=== PATIENT | female | born 1930 | race Caucasian/White ===

== ENCOUNTER → 2020-05-05 | Outpatient (CLI) | payer OTHER ==
[~2020-05-05] MED LIST: ACIPHEX 20 MG T20 MG PO; APAP500; CHERATUSSIN DA480 ML PO; CIPROFLOXACIN500 M1 PO; COUMADIN 4 MG TA4 M1 PO; DARVOCET; HYDROCHLOROTHIA25 M1 PO; IBUPROFEN 600600 M1 PO; K-DUR10 ME1 PO; METAXALONE800 MG PO; TRAMADOL 50 MG50 MG PO
--- NOTE | ~2020-05-05 | EKG ---
[facility] [place] [address] ELECTROCARDIOGRAM REPORT Name: LAURENCE PELAYO Room #: REG [facility].#: [id number] Admission: 05/05/20 Attend Phys: Hardeep Bauman MD Discharge: Date of : [birth year] Report #: [id number] THIS REPORT FOR: cc: Eben Zimmerman David J. DO Epiphany, Epiphany MD ~ THIS REPORT FOR: //name// [facility] Test Date: 2020-05-05 Test Time: 10:41:04 Pat Name: LAURENCE PELAYO Department: Room: Gender: F Senior [employer] Developer: Rhea LEOS : 1930 Requested By: Hardeep Bauman Order Number: [id number] MD: Measurements Intervals [place] Rate: 62 P: 75 DC: 154 QRS: 52 QRSD: 94 T: 52 QT: 418 QTc: 425 Interpretive Statements Sinus rhythm Left atrial enlargement No previous ECG available for comparison [email or web address] By: 1041 1041 Epiphany EpiphMD amarilis /EPI
== END ==
LOC: CV 07:47 → LABMALL 11:38
DX: I65.23 Occlusion and stenosis of bilateral carotid arteries (principal); I67.82 Cerebral ischemia; I51.7 Cardiomegaly; H74.03 Tympanosclerosis, bilateral

== ENCOUNTER → 2020-05-11 | Outpatient (CLI) | payer OTHER | LOC: MRI 06:45 | PROVIDERS: ATTEND Otolaryngology Plastic Surgery within the Head & Neck | DX: I67.82 Cerebral ischemia (principal); H90.3 Sensorineural hearing loss, bilateral; H93.13 Tinnitus, bilateral; R42 Dizziness and giddiness; H74.03 Tympanosclerosis, bilateral ==